=== PATIENT | female | born 1950 | race Caucasian/White ===

== ENCOUNTER 2022-09-04 15:23 | Outpatient (CLI) | payer MEDICARE, BC | END 2022-09-04 15:24 | disposition home or self-care (01) | LOC: CSHMRI 15:23 | PROVIDERS: ATTEND Neurological Surgery | DX: M25.551 Pain in right hip (principal); M54.16 Radiculopathy, lumbar region; M47.816 Spondylosis without myelopathy or radiculopathy, lumbar region; M43.16 Spondylolisthesis, lumbar region; M48.061 Spinal stenosis, lumbar region without neurogenic claudication; M48.07 Spinal stenosis, lumbosacral region; M25.78 Osteophyte, vertebrae; S32.011D Stable burst fracture of first lumbar vertebra, subsequent encounter for fracture with routine healing; N28.9 Disorder of kidney and ureter, unspecified | CPT/HCPCS: 72148 ==

== ENCOUNTER 2023-05-23 12:20 | Outpatient (CLI) | payer MEDICARE, BC | END 2023-05-23 12:21 | disposition home or self-care (01) | LOC: CSHULT 12:20 | PROVIDERS: ATTEND Specialist | DX: R60.0 Localized edema (principal) | CPT/HCPCS: 93970 ==

== ENCOUNTER 2024-04-07 14:02 | Outpatient (CLI) | payer MEDICARE, OTHER | END 2024-04-07 14:03 | disposition home or self-care (01) | LOC: CSHMAMMO 14:02 | PROVIDERS: ATTEND Internal Medicine | DX: Z12.31 Encounter for screening mammogram for malignant neoplasm of breast (principal) | CPT/HCPCS: 77063; 77067 ==

== ENCOUNTER 2024-06-12 15:16 | Outpatient (CLI) | payer MEDICARE, OTHER | END 2024-06-12 15:17 | disposition home or self-care (01) | LOC: CSHMRI 15:16 | PROVIDERS: ATTEND Student in an Organized Health Care Education/Training Program | DX: M75.101 Unspecified rotator cuff tear or rupture of right shoulder, not specified as traumatic (principal); M75.81 Other shoulder lesions, right shoulder; S46.211A Strain of muscle, fascia and tendon of other parts of biceps, right arm, initial encounter; M25.411 Effusion, right shoulder ==

== ENCOUNTER 2025-03-09 13:58 | Emergency (ER) | payer MEDICARE ==
[2025-03-09 16:19] LABS: #Basophils 0.04 10x3/uL (0.0-0.2); #Eosinophils 0.08 10x3/uL (0.0-0.5); #Monocytes 0.54 10x3/uL (0.0-1.1); #Neutrophils 3.58 10x3/uL (1.5-8.4); %Basophils 0.7 % (0.0-2.0); %Eosinophils 1.3 % (0.0-6.0); %Lymphocytes 29.4 % (18.0-47.0); %Monocytes 9.0 % (0.0-10.0); %Neutrophils 59.3 % (40.0-75.0); Hematocrit 34.3 % (34.9-44.5); Hemoglobin 11.5 g/dL (12.0-15.5); Mean Corpuscular Hemoglobin 29.9 pg (27.0-33.0); Mean Corpuscular Volume 89.1 fL (81.6-98.3); Platelet Count 188 10x3/uL (150-450); Red Blood Cell (RBC) Count 3.85 10x6/uL (3.90-5.03); White Blood Cell (WBC) Count 6.03 10x3/uL (3.5-10.5)
[2025-03-09 16:36] LABS: ALT (SGPT) 18 U/L (Less than 34); AST (SGOT) 32 U/L (11-34); Albumin 3.9 g/dL (3.1-4.5); Alkaline Phosphatase 53 U/L (40-110); Anion Gap 8 mmol/L (10-20); BUN (Urea Nitrogen) 19 mg/dL (9.8-20.1); Bilirubin, Total 0.5 mg/dL (0.3-1.2); Calc. Creatinine Clearance 0 mL/min (70-130); Calcium 9.4 mg/dL (7.8-10.44); Carbon Dioxide 30 mmol/L (23-31); Chloride 103 mmol/L (98-107); Globulin 3.0 g/dL (2.4-3.5); Glucose 94 mg/dL (83-110); Potassium 3.6 mmol/L (3.5-5.1); Sodium 137 mmol/L (136-145)
== END 2025-03-09 16:51 | disposition home or self-care (01) ==
LOC: CSHERS 13:58
DX: R42 Dizziness and giddiness (principal); I10 Essential (primary) hypertension
CPT/HCPCS: 36415; 36416; 70450; 80053; 85025; 93005; 93010

== ENCOUNTER 2025-04-17 13:30 | Emergency (ER) | payer MEDICARE, OTHER | END 2025-04-17 14:49 | disposition home or self-care (01) | LOC: CSHERS 13:30 | DX: J06.9 Acute upper respiratory infection, unspecified (principal); B97.89 Other viral agents as the cause of diseases classified elsewhere; I10 Essential (primary) hypertension | CPT/HCPCS: 71045 ==